=== PATIENT | female | born 1950 | race Caucasian/White ===

== ENCOUNTER 2020-10-15 09:26 | Day surgery (SDC) | payer MEDICARE, BC ==
[~2020-10-15 09:26] MED LIST: Cefuroxime 10 MG/ML SYRINGE EYERT SCH; Lidocaine 1% PF 2 ML SDV INJECT SCH; Pilocarpine 4% Ophth Soln 15 ML Bot EYERT SCH
[2020-10-15] MEDS: Polymyxin B/Trimethoprim 10 ML Bottle EYERT SCH ×3 (10:15→12:10)
[2020-10-15] MEDS: Brimonidine 0.2% Ophth Soln 5 ML Bottle EYERT SCH ×3 (10:20→12:10)
[2020-10-15] MEDS: Phenylephrine 2.5% Ophth Soln 15 ML Bot EYERT SCH ×5 (10:25→11:51)
[2020-10-15] MEDS: Tropicamide 1% Ophth Soln 15 ML Bottle EYERT SCH ×4 (10:30→11:33)
--- NOTE | 2020-10-15 11:20 | PCM.PREANE ---
Preanesthetic Assessment - Procedure Proposed Procedure: Right Eye Cataract /extraction with IOL - Anesthesia/Transfusion/Family Hx Anesthesia History: Prior Anesthesia Without Reaction Family History of Anesthesia Reaction: No - Review of Systems General: No Symptoms Pulmonary: No Symptoms Cardiovascular: No Symptoms Gastrointestinal: No Symptoms Neurological: No Symptoms Other: Reports: None - Physical Assessment NPO Status Date: 10/14/20 NPO Status Time: 16:30 Vital Signs: Last Vital Signs Temp 36.6 C 10/15/20 10:05 Pulse 57 L 10/15/20 10:05 Resp 16 10/15/20 10:05 BP 161/73 H 10/15/20 10:05 Pulse Ox 98 10/15/20 10:05 Height: 1.65 m Weight: 49.895 kg ASA Class: 1 Mental Status: Alert & Oriented x3 Airway Class: Mallampati = 2 Dentition: Reports: Normal Dentition, [place](s) Thyro-Mental Finger Breadths: 2 Mouth Opening Finger Breadths: 3 ROM/Head Extension: Full Lungs: Clear to Auscultation, Normal Respiratory Effort Cardiovascular: Regular Rate, Regular Rhythm - Allergies Allergies/Adverse Reactions: Allergies Allergy/AdvReac Type Severity Reaction Status Date / Time No Known Allergies Allergy Verified 10/14/20 13:30 - Acknowledgements Anesthesia Type Planned: MAC Pt an Appropriate Candidate for the Planned Anesthesia: Yes Alternatives and Risks of Anesthesia Discussed w Pt/Guardian: Yes Pt/Guardian Understands and Agrees with Anesthesia Plan: Yes PreAnesthesia Questionnaire - HOME MEDS Home Medications: Home Meds Dextran 70/Hypromellose [Artificial Tears] 1 drop EYEBOTH ASDIRECTED PRN 10/14/20 [History] - CURRENT (IN HOUSE) MEDS Current Meds: Current Medications Brimonidine Tartrate (Alphagan 0.2% Oph Soln) 0 ml EYERT ASDIRECTED [facility] Stop: 10/15/20 18:00 Last Admin: 10/15/20 10:58 Dose: 1 drop Documented by: Cefuroxime Sodium (Zinacef) 0 mg EYERT ASDIRECTED [facility] Stop: 10/15/20 18:00 Lidocaine HCl (Xylocaine-Mpf 1%) 0 ml INJECT ASDIRECTED [facility] Stop: 10/15/20 18:00 Phenylephrine HCl ([place]mar-Synephrine 2.5% Oph Soln) 0 ml EYERT ASDIRECTED [facility] Stop: 10/15/20 18:00 Last Admin: 10/15/20 10:45 Dose: 1 drop Documented by: Pilocarpine HCl (Pilocar 4% Ophth Soln) 0 ml EYERT ASDIRECTED [facility] Stop: 10/15/20 18:00 Polymyxin/Trimethoprim Sulfate (Polytrim Ophth Soln) 0 ml EYERT ASDIRECTED [facility] Stop: 10/15/20 18:00 Last Admin: 10/15/20 10:53 Dose: 1 drop Documented by: Tetracaine HCl (Tetracaine 0.5% Steri-Unit Renetta) 0 ml EYEBOTH ASDIRECTED [facility] Stop: 10/15/20 18:00 Tropicamide (Mydriacyl 1% Oph Soln) 0 ml EYERT ASDIRECTED [facility] Stop: 10/15/20 18:00 Last Admin: 10/15/20 10:50 Dose: 1 drop Documented by:
[2020-10-15] MEDS: Tetracaine HCl/PF 0.5% 4 ML Bottle EYEBOTH SCH ×4 (11:38→11:59)
--- NOTE | 2020-10-15 12:13 | PCM48HPAN ---
Post Anesthesia Note - EVALUATION WITHIN 48HRS OF ANESTHETIC Vital Signs in Normal Range: Yes Patient Participated in Evaluation: Yes Respiratory Function Stable: Yes Airway Patent: Yes Cardiovascular Function Stable: Yes Hydration Status Stable: Yes Pain Control Satisfactory: Yes Nausea and Vomiting Control Satisfactory: Yes Mental Status Recovered: Yes Vital Signs: post procedure 135/69, 70HR, 18RR, 98%Last Vital Signs Temp 97.9 F 10/15/20 10:05 Pulse 57 L 10/15/20 10:05 Resp 16 10/15/20 10:05 BP 161/73 H 10/15/20 10:05 Pulse Ox 98 10/15/20 10:05
== END 2020-10-15 12:23 | disposition home or self-care (01) ==
LOC: JD.SDS 09:26
PROVIDERS: ATTEND Ophthalmology
DX: H25.813 Combined forms of age-related cataract, bilateral (principal); Z90.49 Acquired absence of other specified parts of digestive tract
CPT/HCPCS: 66984; C1780; J0697; J2001

== ENCOUNTER 2020-11-12 07:11 | Day surgery (SDC) | payer MEDICARE, BC ==
[2020-11-12] MEDS: Polymyxin B/Trimethoprim 10 ML Bottle EYELF SCH ×4 (07:21→09:06)
[2020-11-12] MEDS: Phenylephrine 2.5% Ophth Soln 15 ML Bot EYELF SCH ×6 (07:26→08:43)
[2020-11-12] MEDS: Cefuroxime 10 MG/ML SYRINGE EYELF SCH ×2 (07:26→09:04)
[2020-11-12] MEDS: Brimonidine 0.2% Ophth Soln 5 ML Bottle EYELF SCH ×3 (07:26→09:06)
[2020-11-12] MEDS: Tetracaine HCl/PF 0.5% 4 ML Bottle EYEBOTH SCH ×4 (07:26→08:50)
[2020-11-12] MEDS: Lidocaine 1% PF 2 ML SDV INJECT SCH ×2 (07:26→08:50)
[2020-11-12] MEDS: Pilocarpine 4% Ophth Soln 15 ML Bot EYELF SCH ×2 (07:27→09:06)
--- NOTE | 2020-11-12 07:36 | PCM.PREANE ---
Preanesthetic Assessment - Anesthesia/Transfusion/Family Hx Anesthesia History: Prior Anesthesia Without Reaction Family History of Anesthesia Reaction: No Transfusion History: No Prior Transfusion(s) Intubation History: Unknown - Review of Systems General: No Symptoms Pulmonary: No Symptoms Cardiovascular: No Symptoms Gastrointestinal: No Symptoms Neurological: No Symptoms Other: Reports: None - Physical Assessment NPO Status Date: 11/11/20 NPO Status Time: 21:00 Vital Signs: Last Vital Signs Temp Pulse 63 11/12/20 07:15 Resp 16 11/12/20 07:15 BP 132/77 11/12/20 07:15 Pulse Ox 99 11/12/20 07:15 Height: 1.65 m Weight: 49.895 kg ASA Class: 1 Mental Status: Alert & Oriented x3 Dentition: Reports: Normal Dentition Thyro-Mental Finger Breadths: 3 Mouth Opening Finger Breadths: 3 ROM/Head Extension: Full Lungs: Clear to Auscultation, Normal Respiratory Effort - Allergies Allergies/Adverse Reactions: Allergies Allergy/AdvReac Type Severity Reaction Status Date / Time No Known Allergies Allergy Verified 11/11/20 14:36 - Acknowledgements Anesthesia Type Planned: MAC Pt an Appropriate Candidate for the Planned Anesthesia: Yes Alternatives and Risks of Anesthesia Discussed w Pt/Guardian: Yes Pt/Guardian Understands and Agrees with Anesthesia Plan: Yes PreAnesthesia Questionnaire HEENT History: Reports: Cataract Cardiovascular History: Reports: None Respiratory History: Reports: None Gastrointestinal History: Reports: GERD Genitourinary History: Reports: None Musculoskeletal History: Reports: Arthritis Neurological History: Reports: None Psychiatric History: Reports: None Endocrine/Metabolic History: Reports: None - Past Surgical History GI Surgical History: Reports: Appendectomy Female Surgical History: Reports: Hysterectomy - SUBSTANCE USE Tobacco Use Status *Q: Never Tobacco User - HOME MEDS Home Medications: Home Meds Dextran 70/Hypromellose [Artificial Tears] 1 drop EYEBOTH ASDIRECTED PRN 10/14/20 [History] - CURRENT (IN HOUSE) MEDS Current Meds: Current Medications Brimonidine Tartrate (Alphagan 0.2% Ophth Soln) 0 ml EYELF ASDIRECTED [facility] Stop: 11/12/20 18:00 Last Admin: 11/12/20 07:26 Dose: 1 drop Documented by: Cefuroxime Sodium (Zinacef) 0 mg EYELF ASDIRECTED [facility] Stop: 11/12/20 18:00 Last Admin: 11/12/20 07:26 Dose: 1 mg Documented by: Lidocaine HCl (Xylocaine-Mpf 1%) 0 ml INJECT ASDIRECTED [facility] Stop: 11/12/20 18:00 Last Admin: 11/12/20 07:26 Dose: 1 ml Documented by: Phenylephrine HCl ([place]-Synephrine 2.5% Oph Soln) 0 ml EYELF ASDIRECTED [facility] Stop: 11/12/20 18:00 Last Admin: 11/12/20 07:26 Dose: 1 ml Documented by: Pilocarpine HCl (Pilocar 4% Oph Soln) 0 ml EYELF ASDIRECTED [facility] Stop: 11/12/20 18:00 Last Admin: 11/12/20 07:27 Dose: 1 ml Documented by: Polymyxin/Trimethoprim Sulfate (Polytrim Oph Soln) 0 ml EYELF ASDIRECTED [facility] Stop: 11/12/20 18:00 Last Admin: 11/12/20 07:27 Dose: 1 ml Documented by: Tetracaine HCl (Tetracaine 0.5% Steri-Unit Renetta) 0 ml EYEBOTH ASDIRECTED [facility] Stop: 11/12/20 18:00 Last Admin: 11/12/20 07:26 Dose: 1 ml Documented by: Tropicamide (Mydriacyl 1% Oph Soln) 0 ml EYELF ASDIRECTED [facility] Stop: 11/12/20 18:00
[2020-11-12] MEDS: Tropicamide 1% Ophth Soln 15 ML Bottle EYELF SCH ×4 (07:37→08:16)
--- NOTE | 2020-11-12 09:07 | PCM48HPAN ---
Post Anesthesia Note - EVALUATION WITHIN 48HRS OF ANESTHETIC Vital Signs in Normal Range: Yes Patient Participated in Evaluation: Yes Respiratory Function Stable: Yes Airway Patent: Yes Cardiovascular Function Stable: Yes Hydration Status Stable: Yes Pain Control Satisfactory: Yes Nausea and Vomiting Control Satisfactory: Yes Mental Status Recovered: Yes Vital Signs: Last Vital Signs Temp Pulse 63 11/12/20 07:15 Resp 16 11/12/20 07:15 BP 132/77 11/12/20 07:15 Pulse Ox 99 11/12/20 07:15
== END 2020-11-12 09:17 | disposition home or self-care (01) ==
LOC: JD.SDS 07:11
PROVIDERS: ATTEND Ophthalmology
DX: H25.812 Combined forms of age-related cataract, left eye (principal); H02.834 Dermatochalasis of left upper eyelid; H02.831 Dermatochalasis of right upper eyelid; H16.223 Keratoconjunctivitis sicca, not specified as Sjogren's, bilateral; H40.003 Preglaucoma, unspecified, bilateral; H52.31 Anisometropia; Z96.1 Presence of intraocular lens
CPT/HCPCS: 66984; J0697; V2632

== ENCOUNTER 2020-12-12 10:04 | Day surgery (SDC) | payer MEDICARE, BC ==
[2020-12-12] MEDS: Brimonidine 0.2% Ophth Soln 5 ML Bottle EYEBOTH SCH ×2 (10:08→10:58)
[2020-12-12] MEDS: Phenylephrine 2.5% Ophth Soln 2 ML Bot EYEBOTH SCH ×2 (10:10→10:17)
[2020-12-12] MEDS: Tropicamide 1% Ophth Soln 15 ML Bottle EYEBOTH SCH ×2 (10:13→10:20)
== END 2020-12-12 10:59 | disposition home or self-care (01) ==
LOC: JD.SDS 10:04
PROVIDERS: ATTEND Ophthalmology
DX: H26.493 Other secondary cataract, bilateral (principal); H16.223 Keratoconjunctivitis sicca, not specified as Sjogren's, bilateral; H16.103 Unspecified superficial keratitis, bilateral; H35.371 Puckering of macula, right eye; Z96.1 Presence of intraocular lens; Z98.890 Other specified postprocedural states